=== PATIENT | male | born 1970 | race American Indian/Alaskan Native ===

== ENCOUNTER 2017-04-10 01:58 | Emergency (ER) | payer MEDICAID ==
[2017-04-10] MEDS ORDERED: GEODON IM ONE ×3 (07:57→18:23)
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
[2017-04-10 08:27] LABS: Basophils % (Auto) 0.3 % (0.0-1.8); Hematocrit 42.3 % (35.5-45.6); Hemoglobin 13.2 gm/dl (11.8-15.2); Mean Corpuscular HGB Conc 31 % (32-34); Mean Corpuscular Volume 82 fl (84-94); Platelet Count 161 K/mm3 (140-440); Red Blood Count 5.18 M/mm3 (3.65-5.03); Red Cell Distribution Width 16.7 % (13.2-15.2); White Blood Count 9.8 K/mm3 (4.5-11.0)
[2017-04-10 08:39] LABS: Alanine Aminotransferase 25 units/L (7-56); Albumin 4.4 g/dL (3.9-5); Albumin/Globulin Ratio 1.2 %; Alkaline Phosphatase 98 units/L (35-129); Anion Gap 22 mmol/L; BUN/Creatinine Ratio 16.66; Blood Urea Nitrogen 10 mg/dL (9-20); Calcium 9.4 mg/dL (8.4-10.2); Carbon Dioxide 23 mmol/L (22-30); Glucose 157 mg/dL (75-100); Potassium 3.1 mmol/L (3.6-5.0); Sodium 132 mmol/L (137-145); Total Protein 8.1 g/dL (6.3-8.2)
[2017-04-10 08:46] LABS: Mean Corpuscular Hemoglobin 26 pg (28-32)
--- NOTE | 2017-04-10 09:24 | XRay Report ---
Next patient is Aquilino Christina right hand 3 views: History: Right index finger slammed in door. Pain and swelling. Findings: There is fracture noted of the ungual tuft of distal phalanx right index finger. Impression: Fracture of ungual tuft distal phalanx right index finger.
[2017-04-10] MEDS ORDERED: XYLOCAINE 1% 20 mL ONE (10:40)
[2017-04-10] MEDS ORDERED: NACL 0.9% 500 ML IR ONE (10:44)
[2017-04-10 10:58] LABS: Urine Drugs of Abuse Note Disclamer
[2017-04-10 11:15] LABS: Bilirubin,Urine NEG (Negative); Blood,Urine NEG (Negative); Ketones,Urine NEG (Negative); Leukocyte Esterase,Urine NEG (Negative); Nitrite,Urine NEG (Negative); Protein,Urine <15 mg/dL mg/dL (Negative); RBC,Urine < 1.0 /HPF (0.0-6.0); Urobilinogen,Urine < 2.0 mg/dL (<2.0)
[2017-04-10 11:21] LABS: WBC,Urine < 1.0 /HPF (0.0-6.0)
[2017-04-10] MEDS ORDERED: RisperDAL PO ONE (18:16)
[2017-04-10] MEDS ORDERED: COGENTIN PO ONE (18:18)
[2017-04-10] MEDS ORDERED: REMERON PO ONE (18:19)
[2017-04-10] MEDS ORDERED: ATIVAN PO ONE (18:20)
--- NOTE | 2017-04-10 18:31 | Event Note ---
Date: 04/10/17 Patient chain to be very agitated and aggressive towards staff. I ordered all of his oral psychiatric medications. I also ordered an additional 10 mg of IM Geodon given his agitation.
[2017-04-11] MEDS: SYNTHROID PO SCH (11:45)
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
[2017-04-11] MEDS ORDERED: ATIVAN ONE ×2 (15:43→21:17)
[2017-04-11] MEDS: ATIVAN PO SCH (21:40)
[2017-04-11] MEDS: COGENTIN PO SCH (21:41)
[2017-04-11] MEDS: RisperDAL PO SCH (21:41)
[2017-04-11] MEDS ORDERED: REMERON PO SCH (22:00)
[2017-04-12] MEDS ORDERED: AMBIEN PO ONE (01:55)
[2017-04-12] MEDS: SYNTHROID PO SCH (09:43)
[2017-04-12] MEDS: ATIVAN PO SCH (09:43)
[2017-04-12] MEDS: COGENTIN PO SCH (09:46)
[2017-04-12] MEDS: RisperDAL PO SCH (09:46)
[2017-04-12] MEDS ORDERED: K-DUR PO ONE (12:12)
--- NOTE | 2017-04-12 12:22 | Emergency Department Report ---
Blank Doc - Documentation Documentation: Patient was psychiatrically cleared yesterday by psychiatric nurse practitioner Warner Torres and 1013 was rescinded. Patient is accompanied by a female from a assisted who will drive him back to [place]. She feels comfortable taking him home and his behavior is manageable at this time. They were instructed to have sutures removed in 7-10 days. They have medications at home new do not need any prescriptions for psychiatric medication.
[2017-04-12 13:03] VITALS: BP 118/70
--- NOTE | 2017-04-12 13:44 | Progress Note ---
Subjective - Reason for Consult Consult date: 04/12/17 Reason for consult: Psychiatry Follow-up - Chief Complaint Chief complaint: "Hello" 47 years old male brought by a caregiver with a laceration to his right index finger, also patient being aggressive at assisted. Today patient is calm and cooperative during the assessment. He is adamant about wanting to be discharged. Per the staff, no behavioral disturbances overnight. No gestures of SI/HI's. Mental Status Exam - Vital signs Last Vital Signs Temp 97.8 F 04/12/17 13:02 Pulse 78 04/12/17 13:02 Resp 18 04/12/17 13:02 BP 118/70 04/12/17 13:02 Pulse Ox 100 04/12/17 13:02 - Exam Narrative exam: MSE: Appearance: calm, cooperative Behavior: regular eye contact Speech: regular rate and tone Mood: "okay" Affect: congruent to mood Thought Process: unable to assess Thought Content: no gestures of SI/HI's with AVH's Motor Activity: ambulatory Cognition: A/Ox 3 Insight: variable Judgment: variable Assessment and Plan Impression: Historical Dx: Schizophrenia. Hx of Moderate MR. Today patient calm during assessment. Patient is impulsive. Patient is no threat to self or others. DDx: Unspecified Intellectual Disability Recommendation/Plan: 1013 rescinded 04/11/2017. Patient will be transferred back to his residence ([place], [place]) today. Continue current home medication regimen. instructional media services technician involved to assist with placement.
== END 2017-04-12 13:03 | disposition home or self-care (01) ==
LOC: EEVIPCON 01:58 → ED 01:58
DX: S61.210A Laceration without foreign body of right index finger without damage to nail, initial encounter (principal); S62.630A Displaced fracture of distal phalanx of right index finger, initial encounter for closed fracture; F23 Brief psychotic disorder; D64.9 Anemia, unspecified; J45.909 Unspecified asthma, uncomplicated; Z88.6 Allergy status to analgesic agent; W23.0XXA Caught, crushed, jammed, or pinched between moving objects, initial encounter; Y93.9 Activity, unspecified; Y99.9 Unspecified external cause status; Y92.89 Other specified places as the place of occurrence of the external cause
CPT/HCPCS: 12002; 36415; 73140; 80053; 80307; 81001; 85025; 96372; 99284; G0480; J3486; 80320